=== PATIENT | female | born 1955 | race Caucasian/White ===

== ENCOUNTER → 2017-08-28 | Outpatient (CLI) | payer OTHER | LOC: FIMAGING 13:56 | PROVIDERS: ATTEND Registered Nurse General Practice | DX: Z12.31 Encounter for screening mammogram for malignant neoplasm of breast (principal) | CPT/HCPCS: G0202 ==

== ENCOUNTER → 2018-09-08 | Outpatient (CLI) | payer OTHER | LOC: FIMAGING 09:18 | PROVIDERS: ATTEND Family Medicine | DX: Z12.31 Encounter for screening mammogram for malignant neoplasm of breast (principal); Z80.3 Family history of malignant neoplasm of breast ==

== ENCOUNTER 2019-01-18 09:15 | Inpatient (IN) | payer OTHER ==
--- NOTE | 2019-01-07 15:29 | GHP ---
[f rep st] PREOP HISTORY AND PHYSICAL DATE OF ADMISSION: 01/19/2019 PROBLEM: Right hip degenerative arthritis. HISTORY OF PRESENT ILLNESS: The patient is a 63-year-old woman admitted for right total hip arthropl asty. She first noticed trouble with her hip about 15 years ago. In the past 5 years, it has been g radually worse. In July of 2017, she had stem cell injections in both hips with minimal benefit. She is having daily pain and occasional night pain. It is painful to walk. She uses ibuprofen and arnica. She has trouble putting on her shoes and socks. Because of severe pain and limitation of da kristina activities, she will undergo a right total hip arthroplasty. PAST MEDICAL HISTORY: She is treated for hypothyroidism and mild asthma. She stopped smoking 2 to 3 months ago in preparation for her hip replacement. No history of heart disease, DVT, hepatitis, MRS A staph infections, or hereditary bleeding disorders. She has been treated in the past for sleep comfort filler ea. She has lost quite a bit of weight and she no longer uses a CPAP machine. CURRENT MEDICATIONS: Effexor 37.5 mg per day. She also uses an inhaler. ALLERGIES: Drugs allergies: None. Metal allergy: None. Latex allergy: None. SOCIAL HISTORY: The patient is . She stopped smoking 2 to 3 months ago. FAMILY HISTORY: Positive for arthritis, heart disease, diabetes, and hypertension. PHYSICAL EXAMINATION: VITAL SIGNS: Height 5 feet 7 inches, weight 214 pounds. BMI 33.5. HEENT: E yes: Conjunctivae and sclerae are clear. Pupils are round and reactive. Mouth: Good oral hygiene. No loose teeth. CHEST: Clear. HEART: Regular rhythm. No murmurs. EXTREMITIES: Pertinent find ings limited to her right hip. She has 100 degrees of flexion. External rotation 20 degrees. Inter nal rotation 0 degrees. Abduction 20 degrees. The hip is painful at the extremes of motion. IMAGING: Her films show advanced degenerative arthritis of her right hip. She is 4 or 5 mm short on the right. IMPRESSION ON ADMISSION: 1. Right hip advanced degenerative arthritis. She is prepared for right total hip arthroplasty. 2. Treatment for hypothyroidism. 3. Treatment for mild asthma. 4. Obesity. PLAN: She will undergo a right total hip arthroplasty. The surgery has been described to her, rupinder garcia the risks, complications, expectations, and recovery time. I have discussed with her the risk o f dislocation, leg length inequality, infection, and sciatic nerve injury. Her obesity increases her surgical risks. She understands that she is relatively young for a total hip replacement and might need revision surgery in the future. All her questions have been answered, and she consents to surge ry. /[id number]/MODL
[2019-01-19] MEDS ORDERED: ROPIVACAINE 0.2% 80 MG, EPINEPHrine 0.2 MG, KETOROLAC TROMETHAMINE 30 MG in SYRINGE 0 ML IU ONE (06:00)
[2019-01-19] MEDS ORDERED: POVIDONE-IODINE 20 ML in SODIUM CL IRRIG SOLUTION 500 ML IRR ONE (06:00)
[2019-01-19] MEDS ORDERED: TRANEXAMIC ACID 1,000 MG in NS 100 ML IV ONE (06:00)
[2019-01-19] MEDS ORDERED: ceFAZolin 1 GM/5 ML SYR ONE (07:58)
[2019-01-19] MEDS ORDERED: GABAPENTIN 300 MG CAP PO ONE (08:01)
[2019-01-19] MEDS ORDERED: FAMOTIDINE 20 MG TAB PO ONE (08:01)
[2019-01-19] MEDS ORDERED: ONDANSETRON 4 MG/2 ML VIAL IVP ONE (08:01)
[2019-01-19] MEDS ORDERED: ceFAZolin 2 GM/DEXTROSE 100 ML IV ONE (08:01)
[2019-01-19] MEDS ORDERED: DEXAMETHASONE 4 MG/ML VIAL IVP ONE (08:01)
[2019-01-19] MEDS ORDERED: ACETAMINOPHEN 325 MG TAB PO ONE (08:01)
[2019-01-19] MEDS ORDERED: LR 1,000 ML IV ONE (08:12)
--- NOTE | 2019-01-19 08:28 | PDANEPAE ---
ANE Past Medical History - Cardiovascular History Hx Hypertension: No Hx Arrhythmias: No Hx Chest Pain: No Hx Coronary Artery / Peripheral Vascular Disease: No Hx CHF / Valvular Disease: No Hx Palpitations: No - Pulmonary History Hx COPD: No Hx Asthma/Reactive Airway Disease: Yes Hx Recent Upper Respiratory Infection: No Hx Oxygen in Use at Home: No Hx Sleep Apnea: No Sleep Apnea Screening Result - Last Documented: Negative Pulmonary History Comment: hx of [place] but has lost weight and is no longer having issues. when she hikes she uses proair, has never had an asthma attack - Neurologic History Hx Cerebrovascular Accident: No Hx Seizures: No Hx Dementia: No - Endocrine History Hx Diabetes: No Endocrine History Comment: hashimotos - Renal History Hx Renal Disorders: Yes Renal History Comment: prolapsed bladder- no issues currently - Liver History Hx Hepatic Disorders: No - Neurological & Psychiatric Hx Hx Neurological and Psychiatric Disorders: Yes Neurological / Psychiatric History Comment: depression - Cancer History Hx Cancer: No - Congenital Disorder History Hx Congenital Disorders: No - GI History Hx Gastrointestinal Disorders: No - Other Health History Other Health History: wears glasses - Chronic Pain History Chronic Pain: Yes (right hip) - Surgical History Prior Surgeries: eduard. sinus surgery. hysterectomy ANE Review of Systems Review of Systems: - Exercise capacity METS (RN): 4 METS ANE Patient History - Allergies Allergies/Adverse Reactions: No Known Allergies Allergy (Verified 01/06/19 10:15) - Home Medications Home Medications: Herbals/Supplements -Info Only 1 ea PO DAILY 01/06/19 [Last Taken Unknown] Levothyroxine [Synthroid 100 mcg (*)] 100 mcg PO DAILY06 01/06/19 [Last Taken Unknown] Venlafaxine Xr [Effexor Xr] 150 mg PO DAILY 01/06/19 [Last Taken Unknown] Acetaminophen [Tylenol 325mg (*)] 325 mg PO Q6 PRN 01/12/19 [Last Taken Unknown] Ondansetron Odt [Zofran Odt 4 mg (*)] 4 mg PO Q6HRS PRN 01/12/19 [Last Taken Unknown] Venlafaxine Xr [Effexor Xr 37.5MG (*)] 37.5 mg PO DAILY 01/12/19 [Last Taken Unknown] celeCOXIB [Celebrex (*)] 200 mg PO DAILY 01/12/19 [Last Taken Unknown] oxyCODONE IR [Oxycodone Ir (*)] 5 mg PO Q4HRS PRN 01/12/19 [Last Taken Unknown] traMADol [Ultram 50 mg (*)] 50 mg PO Q6HRS PRN 01/12/19 [Last Taken Unknown] - Smoking Hx Smoking Status: Former smoker - Family Anes Hx Family Hx Anesthesia Complications: none ANE Labs/Vital Signs - Labs - CBC Platelet Count: 285 - Vital Signs Height: 172.72 cm Weight: 97.522 kg ANE Physical Exam - Airway Neck exam: FROM Mallampati Score: Class 2 Mouth exam: normal dental/mouth exam - Pulmonary Pulmonary: clear to auscultation - Cardiovascular Cardiovascular: regular rate and rhythym - ASA Status ASA Status: II ANE Anesthesia Plan Anesthesia Plan: spinal
[2019-01-19] MEDS ORDERED: MIDAZOLAM 2 MG/2 ML VIAL IVP ONE (08:34)
--- NOTE | 2019-01-19 09:29 | PDHPUP ---
History & Physical Update H&P update statement: This history and physical update is based on an assessment of the patient which was completed after admission or registration (within 24 hours), but prior to the surgery/procedure. H&P update: H&P reviewed & patient examined
[2019-01-19] MEDS ORDERED: BUPIVACAINE/DEXTROSE 7.5MG/ML 2 ML SPINAL AMP SP ONE (10:20)
[2019-01-19] MEDS ORDERED: PROPOFOL 200 MG/20 ML VIAL ONE (10:39)
[2019-01-19] MEDS ORDERED: HYDROmorphONE/DILAUDID 2 MG/ML INJ ONE (10:54)
[2019-01-19] MEDS ORDERED: PROPOFOL/EMULSION 500 MG/50 ML BOTTLE IV ONE (10:56)
[2019-01-19] MEDS ORDERED: ROCURONIUM 50 MG/5 ML VIAL ONE ×2 (11:02)
[2019-01-19] MEDS ORDERED: DEXAMETHASONE 4 MG/ML VIAL ONE (11:03)
[2019-01-19] MEDS ORDERED: ePHEDrine SULFATE 25 MG/5 ML SYR ONE (11:16)
[2019-01-19] MEDS ORDERED: PHENYLEPHRINE HCL 100 MCG/ML SYR ONE (11:19)
[2019-01-19] MEDS ORDERED: *IRR*TRANEXAMIC ACID 3,000 MG/NS 50 ML IRR ONE (11:30)
[2019-01-19] MEDS ORDERED: ONDANSETRON 4 MG/2 ML VIAL ONE (11:56)
[2019-01-19] MEDS ORDERED: DIAZEPAM 5 MG/ML 1 ML SYR IVP PRN (12:00)
[2019-01-19] MEDS ORDERED: MEPERIDINE 25 MG/0.5 ML AMP IVP PRN (12:00)
[2019-01-19] MEDS ORDERED: METOCLOPRAMIDE 10 MG/2 ML VIAL IVP PRN (12:00)
[2019-01-19] MEDS ORDERED: PROMETHAZINE HCL 25 MG/ML INJ IVP PRN ×2 (12:00→12:40)
[2019-01-19] MEDS ORDERED: ALBUTEROL 3 ML DEYVIAL IH PRN (12:00)
[2019-01-19] MEDS ORDERED: ONDANSETRON 4 MG/2 ML VIAL IVP PRN ×2 (12:00→12:40)
[2019-01-19] MEDS ORDERED: HYDROmorphONE/DILAUDID 1 MG/ML INJ IVP PRN (12:00)
[2019-01-19] MEDS ORDERED: LR 500 ML IV PRN (12:00)
[2019-01-19] MEDS ORDERED: NALOXONE HCL 0.4 MG/ML INJ IVP PRN (12:00)
[2019-01-19] MEDS ORDERED: SUGAMMADEX SODIUM 200 MG/2 ML VIAL IVP ONE (12:04)
--- NOTE | 2019-01-19 12:18 | POSTOPPROG ---
Post Op Note Date of Operation: 01/19/19 Surgeon: Rolando Riggs Workforce Staffing Advisor: Tamara Anesthesiologist: Carey Anesthesia: GET(General Endotracheal) Post-op Diagnosis: Right hip severe degenerative arthritis. Procedure: Right total hip arthroplasty Inf/Abcess present in the surg proc area at time of surgery?: No EBL: 100-500
[2019-01-19] MEDS ORDERED: NS 500 ML IV PRN (12:40)
[2019-01-19] MEDS ORDERED: TEMAZEPAM 15 MG CAP PO PRN (12:40)
[2019-01-19] MEDS ORDERED: traMADol 50 MG TAB PO PRN (12:40)
[2019-01-19] MEDS ORDERED: DIPHENOXYLATE/ATROPINE LOMOTIL 1 TAB PO PRN (12:40)
[2019-01-19] MEDS ORDERED: CYCLOBENZAPRINE 10 MG TAB PO PRN (12:40)
[2019-01-19] MEDS ORDERED: LACTULOSE 20 GM/30 ML UDCUP PO PRN (12:40)
[2019-01-19] MEDS ORDERED: diphenhydrAMINE 25 MG CAP PO PRN (12:40)
[2019-01-19] MEDS ORDERED: PROMETHAZINE HCL 25 MG SUPPR PR PRN (12:40)
[2019-01-19] MEDS ORDERED: ONDANSETRON DISINTEGRATING 4 MG TAB PO PRN (12:40)
[2019-01-19] MEDS ORDERED: BISACODYL 10 MG SUPP PR PRN (12:40)
[2019-01-19] MEDS ORDERED: MAGNESIUM HYDROXIDE 30 ML UDCUP PO PRN (12:40)
[2019-01-19] MEDS ORDERED: POLYETHYLENE GLYCOL 3350 17 GM PKT PO PRN (12:40)
--- NOTE | 2019-01-19 12:51 | GOP ---
[f rep st] OPERATIVE REPORT DATE OF OPERATION: 01/19/2019 SURGEON: Rolando Riggs MD VENEER REDRIER: 1. Yonatan Green CFA. 2. Jeffery Shepherd, PAC. ANESTHESIA: Attempted spinal anesthesia followed by general anesthesia. PREOPERATIVE DIAGNOSIS: Right hip severe degenerative arthritis. POSTOPERATIVE DIAGNOSIS: Right hip severe degenerative arthritis. PROCEDURE PERFORMED: January 19, 2019, a right total hip arthroplasty. FINDINGS: DESCRIPTION OF PROCEDURE: The patient was given 2 g of IV Ancef preoperatively within 60 minutes of surgery. She also received 1000 mg of preoperative IV tranexamic acid. She was placed on the operat ing room table, and Dr. Selin Patino attempted spinal anesthesia. This was unsuccessful. She was then pl aced supine and given general endotracheal anesthesia. A Fan catheter was not used. She wore a TE D stocking and SCD on the nonoperative leg. She was rolled to the left lateral decubitus position. She was a large woman, and that made positioning difficult. The position was secured with the [employer] rd table attachment. An axillary roll was used, and all pressure points were carefully padded. Her perineum was isolated with plastic adhesive drapes. Her right hip and right lower extremity were pre pped with ChloraPrep. They were draped free using sterile sheets, stockinette, and Ioban plastic shikha pe. The World Health Organization timeout was performed to verify the correct patient identity, and the c orrect surgical side and site. The Hitchcock timeout was also performed. I made a 7-inch straight oblique posterolateral hip skin incision. Because of her size, I had to rishi e a larger than typical incision. Subcutaneous tissues were sharply divided, and hemostasis was obta ined using electrocautery. She had a deep layer of subcutaneous fat. Her fascia adrienne was identified and split along the axis of its fibers. I curved posteriorly and proximally, split the fascia of gl uteus alonzo, and bluntly split the muscle fibers in line with their orientation. The Charnley self -retaining retractor was inserted. Her sciatic nerve was located and protected throughout the proced ure. The external rotators and the posterior hip capsule were divided as separate layers at the base of the femoral neck, tagged, and reflected posteriorly. A smooth 1/8-inch Steinmann pin was inserte d vertically into the ilium, superior to the acetabulum. An 1/8-inch drill bit was inserted vertical ly into the greater trochanter and parallel to the first pin. The distance between the 2 was measure d for leg length reference. Her femoral head was dislocated posteriorly. Severe degenerative change s were present on the femoral head. Her femoral neck was osteotomized at the appropriate level and i nclination. I was careful to preserve all the posterior capsule and most of the anterior capsule. The remnant of her damaged labrum was excised. I prepared the femur first. This allowed me to gore stitcher the amount of natural femoral neck anteversion. This, in turn, allowed me to later determine the correct amount of cup anteversion. She had about 15 degrees of femoral neck anteversion. The canal was opened laterally with a box chisel. I used a starter reamer followed by hand broaching sequentially up to a size 5. I used a size 5 [place] Accol cindi to broach and high offset as a trial stem. I was careful to lateralize adequately. Appropriate retractors were inserted to expose the acetabulum. The acetabulum was reamed sequentiall y up to 54 mm. I selected a 54 mm [place] Tritanium Trident II cluster hole hemispherical shell. Th is was tapped securely into place in the proper degree of inclination and anteversion. I used the tr ansverse acetabular ligament and other acetabular bony landmarks to help me properly orient the cup. Fixation was tight, and supplemental screws were not necessary. She had an anterior acetabular rim osteophyte, which I removed with an osteotome and rongeur. I performed a series of trial reductions to determine length and stability. I concluded that the hig h offset stem with a 10-degree lipped liner and a -2.5 mm neck length gave me the proper combination of good anterior and posterior stability with just a small amount of lengthening. She was approximat leisa 4 mm short preoperatively, and I was intentionally lengthening her. I used the 10-degree lipped liner for additional stability. The 10-degree Chad X3 highly cross-linked polyethylene liner was inserted and tapped securely into place. The Chad Accolade II stem in size 5 with high offset was inserted press-fit and was very tight. I did one final trial reduction and confirmed that the 36 mm head with a -2.5 neck length gav e me the proper combination. The [place] Biolox Delta ceramic head with an outside diameter of 36 mm and a neck length of -2.5 mm was tapped securely onto the clean trunnion. Her acetabulum was irriga trent and cleaned, and the hip was reduced one final time. She had excellent anterior and posterior st ability, and appropriate length. 40 mL of the joint anesthetic cocktail was injected into the capsule, the deep musculature, and subcu taneous tissues along the skin edges. The joint was thoroughly irrigated one final time with a dilut e Betadine solution. 50 mL of tranexamic acid solution was irrigated into the wounds. Her sciatic n erve was reinspected and looked unharmed. The external rotators and the posterior hip capsule were repaired in separate layers with #2 FiberWir e sutures through drill holes in the greater trochanter. This provided a strong posterior capsular a nd external rotator repair. The fascia adrienne was closed first with 2 interrupted [id number] #2 F iberWire sutures followed by a running #2 barbed Ethicon Stratafix PDO suture. The subcutaneous tiss ues were closed in layers starting with interrupted 2-0 Monocryl sutures followed by a running 0 cassy ed Ethicon Stratafix Monoderm suture. The skin was closed with a running 3-0 barbed Ethicon Stratafi x Monoderm subcuticular suture. The skin edges were reapproximated and sealed with Dermabond glue. The wound was covered with a large piece of waterproof Mepilex surgical dressing. A sacral Mepilex d ressing was also applied. A long-leg TRENT stocking and SCD were applied to her right lower extremity. She wore a stocking and S CD on the opposite leg during the procedure. An abduction pillow was placed between her knees. She was awakened from anesthesia and rolled to the supine position on her [facility]. She was taken to PACU in satisfactory condition. There were no recognized intraoperative complications. The estimated blood loss was about 400 mL. The sponge and needle counts were correct on 2 occasions. I used a [place] Tritanium Trident II hemispherical cluster hole acetabular shell with an outside conrado meter of 54 mm. The liner was a [place] X3 10-degree highly cross-linked liner with an inside diamet er of 36 mm. The femoral component was press-fit Chad Accolade II high offset stem in size 5. Th e femoral head was a Chad Biolox Delta ceramic head with a -2.5 mm neck length and a 36 mm outside diameter. Yonatan Green and Matt Shepherd acted as surgical assistants. Their assistance was a medical necess ity for safe completion of the procedure. /[id number]/MODL
--- NOTE | 2019-01-19 12:51 | POSTANESTH ---
Post Anesthetic Evaluation Cardiovascular Status: Normal, Stable Respiratory Status: Normal, Stable Level of Consciousness/Mental Status: Can Participate in Eval Pain Control: Adequate, Prn Tx Ordered Nausea/Vomiting Control: Adequate, Prn Tx Ordered Complications Possibly Related to Anesthesia: None Noted
[2019-01-19] MEDS ORDERED: LR 1,000 ML IV SCH (13:00)
[2019-01-19] MEDS ORDERED: fentaNYL 100 MCG/2 ML INJ ONE (13:10)
[2019-01-19] MEDS: fentaNYL 100 MCG/2 ML INJ IVP PRN ×2 (13:12→13:41)
--- NOTE | 2019-01-19 13:23 | PDMN ---
Medical Necessity Medical necessity: Pt meets inpt criteria per MD order and [facility] S-560, Hip Arthroplasty, MCR IP only list, A-2 days. 63 y/o w/R hip severe degenerative arthritis, admitted for R NOLVIA and post-op care. PMHx includes hypothyroidism, mild asthma, obesity, and smoking w/recent cessation 2-3 mos ago.
[2019-01-19] MEDS ORDERED: oxyCODONE IR 5 MG TAB ONE (14:01)
[2019-01-19] MEDS: oxyCODONE IR 5 MG TAB PO PRN ×2 (14:03→17:36)
[2019-01-19] MEDS: ACETAMINOPHEN 325 MG TAB PO SCH ×2 (17:06→23:46)
[2019-01-19] MEDS: KETOROLAC 15 MG/1 ML SDV IVP SCH ×2 (17:06→23:47)
[2019-01-19] MEDS: ceFAZolin 2 GM/DEXTROSE 100 ML IV SCH (17:06)
[2019-01-19] MEDS ORDERED: MAGNESIUM OXIDE 400 MG TAB PO ONE (20:18)
[2019-01-19] MEDS: SENNOSIDES/DOCUSATE SODIUM TAB PO SCH (21:19)
[2019-01-19] MEDS: FAMOTIDINE 20 MG TAB PO SCH (21:19)
[2019-01-19] MEDS: ASPIRIN 325 MG TAB PO SCH (21:19)
[2019-01-19] MEDS: CALCIUM CARBONATE 500 MG TAB PO SCH (21:19)
[2019-01-20] MEDS: ceFAZolin 2 GM/DEXTROSE 100 ML IV SCH (01:47)
[2019-01-20] MEDS: ACETAMINOPHEN 325 MG TAB PO SCH (05:27)
[2019-01-20] MEDS: KETOROLAC 15 MG/1 ML SDV IVP SCH (05:28)
[2019-01-20] MEDS ORDERED: LEVOTHYROXINE 100 MCG TAB PO SCH (06:00)
[2019-01-20] MEDS ORDERED: FERROUS SULFATE 325 MG TAB PO SCH (08:00)
--- NOTE | 2019-01-20 08:29 | SOAPPROG ---
SOAP Progress Note Assessment/Plan: Assessment: Afebrile. Awake and alert. Mild pain. Up and walking. Dsg is dry. H/H is good. Films look good. Sciatic nerve intact. Plan: PT today. DC today. Out patient PT. 01/20/19 08:26 Objective: Vital Signs Temp Pulse Resp BP Pulse Ox 36.7 C 78 14 107/67 97 01/20/19 03:39 01/20/19 03:39 01/20/19 03:39 01/20/19 03:39 01/20/19 03:39 Laboratory Results 01/20/19 04:29 01/19/19 01/20/19 01/21/19 05:59 05:59 05:59 Intake Total 2860 500 Output Total 2800 Balance 60 500 ICD10 Worksheet Patient Problems: Problems Problem Status Onset Osteoarthritis of right hip Acute
[2019-01-20 08:33] VITALS: BP 116/73
--- NOTE | 2019-01-20 08:59 | GDS ---
[f rep st] DISCHARGE SUMMARY ADMISSION DIAGNOSIS: Right hip severe degenerative arthritis. DISCHARGE DIAGNOSIS: Right hip severe degenerative arthritis. OPERATION PERFORMED: January 18, 2019, a right total hip arthroplasty. POSTOPERATIVE COMPLICATIONS: None. CONDITION ON DISCHARGE: Improved. DESCRIPTION OF HOSPITAL COURSE: The patient was admitted to the hospital on the morning of surgery. Her admission CBC was normal. The same day, under general anesthesia, she underwent a right total h ip arthroplasty. Postoperatively she was treated with multimodal DVT prophylaxis, including aspirin. On the first postoperative day, her hemoglobin and hematocrit were 10.9 and 33.6. She was seen by Physical Therapy and made rapid progress with ambulation and stairs. By the time of discharge, she w as afebrile, her wound was clean and dry, and she was independent walking with a walker. DISPOSITION: The patient is discharged to her home. She will go to outpatient physical therapy at [facility] office. She may progress to full weightbearing on the right as tolerated. Use an abduction pillow in bed for 3 weeks. Use TRENT stockings for 1 week. Continue aspirin 325 mg p.o. daily for 21 days. She has prescriptions for Celebrex, oxycodone, and tramadol for pain control. If there are any prob lems, she is to call me at the office. I will see her back on February 08, 2019. /[id number]/MODL
[2019-01-20] MEDS ORDERED: VENLAFAXINE XR 150 MG CAP PO SCH (09:00)
[2019-01-20] MEDS ORDERED: VENLAFAXINE XR 37.5 MG CAP PO SCH (09:00)
[2019-01-20] MEDS: oxyCODONE IR 5 MG TAB PO PRN (09:11)
[2019-01-20] MEDS: CALCIUM CARBONATE 500 MG TAB PO SCH (09:11)
[2019-01-20] MEDS: FAMOTIDINE 20 MG TAB PO SCH (09:11)
[2019-01-20] MEDS: SENNOSIDES/DOCUSATE SODIUM TAB PO SCH (09:11)
[2019-01-20] MEDS: ASPIRIN 325 MG TAB PO SCH (09:11)
--- NOTE | 2019-01-20 09:58 | ASMTLACE ---
DARRIN Length of stay for Answers: 2 days current admission Acuity / Level of Answers: Yes Care: Did the patient have an inpatient admission? # of Emergency department Answers: 0 visits in the last 6 months Score: 5 Date Signed: 01/20/2019 09:58 AM Electronically Signed By:MADELINE Braga
--- NOTE | 2019-01-20 10:16 | ASMTCMCOM ---
CM Note CM Note Notes: Pt had planned OA of hip, resides with spouse. PT rec home/outpatient, MD rec outpatient. No CM d/c needs identified. Date Signed: 01/20/2019 10:15 AM Electronically Signed By:MADELINE Braga
== END 2019-01-20 10:44 | disposition home or self-care (01) | DRG 470 ==
LOC: EDSTATUS 09:15 → F3N 01-19 07:52 → OBSVTOIN 01-19 12:47 → F3N 01-19 16:15
PROVIDERS: ADMIT Orthopaedic Surgery; ATTEND Orthopaedic Surgery
PROC: 0SR904A Replacement of Right Hip Joint with Ceramic on Polyethylene Synthetic Substitute, Uncemented, Open Approach (ICD-10-PCS; principal; 2019-01-19 10:30)
DX: M17.11 Unilateral primary osteoarthritis, right knee (principal); E03.9 Hypothyroidism, unspecified; J45.909 Unspecified asthma, uncomplicated; G47.30 Sleep apnea, unspecified; E66.9 Obesity, unspecified; Z87.891 Personal history of nicotine dependence
CPT/HCPCS: 97116-GP; 97161-GP; 97165-GO; J0171; J0690; J1100; J1170; J1885; J2250; J2370; J2405; J2704; J2795; J3010